=== PATIENT | female | born 1950 | race Caucasian/White ===

== ENCOUNTER 2018-05-01 17:12 | Observation (INO) | payer OTHER ==
[2018-05-01 17:56] LABS: Absolute Lymphocytes (CBC) 2.2 K/uL (0.7-4.9); Absolute Monocytes 0.7 K/uL (0.1-1.3); Absolute Neutrophil 5.6 K/uL (1.8-8.0); Basophils % 1.1 % (0-1.3); Eosinophils % 1.7 % (0-4.4); Hematocrit 45.5 % (36.0-45.0); Lymphocytes % 25.3 % (15.3-44.8); MCH 29.3 pg (27.0-35.0); MPV 9.1 fL (7.6-11.3); Monocytes % 7.8 % (3.3-12.3); RBC Red Blood Cell Count 5.29 M/uL (3.86-4.86)
[2018-05-01 17:59] LABS: Protime INR 1.01
[2018-05-01 18:17] LABS: Albumin 3.7 g/dL (3.4-5.0); Bilirubin Direct 0.2 mg/dL (0-0.2); Bilirubin Total 0.7 mg/dL (0.2-1.0); CKMB Creatine Kinase MB 2.3 ng/mL (0.3-3.6); Magnesium 1.8 mg/dL (1.8-2.4); Protein, Total 7.1 g/dL (6.4-8.2)
[2018-05-01 18:19] LABS: Potassium 2.9 mmol/L (3.5-5.1)
[2018-05-01] MEDS: NS KCL 40MEQ 40 MEQ/1,000 ML BAG IV SCH (19:00)
--- NOTE | 2018-05-01 19:28 | RAD REPORT ---
EXAM DESCRIPTION: Ashlyn Single View05/01/2018 6:54 pm CLINICAL HISTORY: Chest pain COMPARISON: none FINDINGS: The lungs appear clear of acute infiltrate. The heart is normal size IMPRESSION: No acute abnormalities displayed
--- NOTE | 2018-05-01 19:40 | ER ---
Nurse's Notes [facility] Name: Meg Santiago Age: 68 yrs Sex: Female : 1950 Arrival Date: 05/01/2018 Time: 17:15 Bed 7 Private MD: Diagnosis: Hypotension;Hypokalemia;Syncope and collapse Presentation: 05/01 17:17 Presenting complaint: EMS states: Pt was shopping, became dizzy and sat down. Pt had ss syncopal episode that last for only a few moments. En route EMS reports patient was hypotensive at 77/30, cool and clammy. Pt reports she recently had a medication change last week, and began taking her new blood pressure medication yesterday. Transition of care: patient was not received from another setting of care. Onset of symptoms was May 01, 2018. Risk Assessment: Do you want to hurt yourself or someone else? Patient reports no desire to harm self or others. Initial Sepsis Screen: Does the patient meet any 2 criteria? HR > 90 bpm. Does the patient have a suspected source of infection? No. Patient's initial sepsis screen is negative. 17:17 Method Of Arrival: EMS: [facility] ss 17:17 Acuity: AC 2 ss 17:19 Transition of care: patient was not received from another setting of care. Onset of hb symptoms was May 01, 2018. Risk Assessment: Do you want to hurt yourself or someone else? Patient reports no desire to harm self or others. Care prior to arrival: Medication(s) given: ASA, 324 mgh Normal saline infusion, 400 ml IV initiated. 20 GA, in the left antecubital area, Glucose check: 186. Triage Assessment: 18:03 Neuro: Reports. hb Historical: - Allergies: 17:22 PENICILLINS; ss - PMHx: 17:22 Hypertension; GERD; ss - Immunization history:: Adult Immunizations up to date. - Social history:: Smoking status: Patient/guardian denies using tobacco. - Ebola Screening: : No symptoms or risks identified at this time. Screenin:30 Abuse screen: Denies threats or abuse. Denies injuries from another. Nutritional hb screening: No deficits noted. Tuberculosis screening: No symptoms or risk factors identified. Fall Risk Total Linder Fall Scale indicates Low Risk Score (25-44 pts). Fall prevention measures have been instituted. Side Rails Up X 2 Frequent Obs/Assesments occuring As available Patient and Family Educated on Fall Prevention Program and strategies. Assessment: 17:20 General: Appears in no apparent distress. Behavior is calm, cooperative. Pain: Denies hb pain. Neuro: Level of Consciousness is awake, alert, obeys commands, Oriented to person, place, time, situation. Cardiovascular: Heart tones S1 S2 present Capillary refill < 3 seconds Patient's skin is warm and dry. Rhythm is regular. Respiratory: Airway is patent Trachea midline Respiratory effort is even, unlabored, Respiratory pattern is regular, symmetrical, Breath sounds are clear bilaterally. GI: No signs and/or symptoms were reported involving the gastrointestinal system. : No signs and/or symptoms were reported regarding the genitourinary system. EENT: No signs and/or symptoms were reported regarding the EENT system. Derm: No signs and/or symptoms reported regarding the dermatologic system. Skin is intact, is healthy with good turgor, Skin is pink, warm \T\ dry. Musculoskeletal: No signs and/or symptoms reported regarding the musculoskeletal system. 18:19 Reassessment: Dr. Hood notified of critical lab value. Potassium K+. ss 18:50 Reassessment: Patient appears in no apparent distress at this time. Patient and/or sv family updated on plan of care and expected duration. Pain level reassessed. Patient is alert, oriented x 3, equal unlabored respirations, skin warm/dry/pink. 19:15 General: Appears in no apparent distress. comfortable, Behavior is calm, cooperative. ao Pain: Denies pain. Neuro: Level of Consciousness is awake, alert, obeys commands, Oriented to person, place, time, situation, Appropriate for age Moves all extremities. Full function Speech is normal, Facial symmetry appears normal. Cardiovascular: Capillary refill < 3 seconds Patient's skin is warm and dry. Respiratory: Airway is patent Respiratory effort is even, unlabored, Respiratory pattern is regular, symmetrical. GI: Abdomen is non-distended. : No signs and/or symptoms were reported regarding the genitourinary system. EENT: No signs and/or symptoms were reported regarding the EENT system. Derm: Skin is intact, is healthy with good turgor, Skin is moist, Skin is pink, warm \T\ dry. normal, Skin temperature is warm. Musculoskeletal: Range of motion: intact in all extremities. 20:30 Reassessment: Patient appears in no apparent distress at this time. Patient and/or ao family updated on plan of care and expected duration. Pain level reassessed. Patient is alert, oriented x 3, equal unlabored respirations, skin warm/dry/pink. Patient to be admitted. patient agree with the POC. 21:32 Reassessment: Patient appears in no apparent distress at this time. Patient and/or ao family updated on plan of care and expected duration. Pain level reassessed. Patient is alert, oriented x 3, equal unlabored respirations, skin warm/dry/pink. waiting on room assignment. Vital Signs: 17:16 BP 102 / 66; Pulse 104; Resp 14; Temp 98.2; Pulse Ox 99% on R/A; Pain 3/10; hb 18:30 BP 99 / 56; Pulse 108; Resp 21; Pulse Ox 97% on R/A; sv 19:30 BP 108 / 62; Pulse 94; Resp 17; Pulse Ox 96% on R/A; ao 20:30 BP 103 / 67; Pulse 98; Resp 13; Pulse Ox 96% on R/A; Pain 0/10; ao 21:34 BP 107 / 67; Pulse 103; Resp 21; Pulse Ox 99% on R/A; Pain 0/10; ao ED Course: 17:15 Patient arrived in ED. hb 17:17 Arm band placed on right wrist. hb 17:19 Marya Mancia FNP-C is PHCP. snw 17:19 Ketan Hood MD is Attending Physician. snw 17:20 Patient has correct armband on for positive identification. Placed in gown. Bed in low hb position. Call light in reach. Side rails up X2. technical laboratory asst on. Pulse ox on. NIBP on. 17:20 Maintain EMS IV. Dressing intact. Good blood return noted. Site clean \T\ dry. Gauge \T\ hb site: 20G LEFT AC. 17:21 Triage completed. ss 17:25 EKG done, by die maintenance technician. reviewed by Ketan Hood MD. sm3 18:01 Swetha Calhoun, RYAN is Primary Nurse. hb 18:53 XRAY Chest (1 view) In Process Unspecified. EDMS 19:39 Hector Andrade MD is Hospitalizing Provider. snw 20:33 Primary Nurse role handed off by Swetha Calhoun RN rg2 21:03 Aydin Arnold, RN is Primary Nurse. ao 22:14 No provider procedures requiring assistance completed. Patient admitted, IV remains in ao place. Administered Medications: 18:54 Drug: NS 0.9% with KCl 40 mEq/L 1000 ml Route: IV; Rate: 100 ml/hr; Site: left sv antecubital; 21:28 Follow up: IV Status: Infusion continued upon admission ao Point of Care Testing: Blood Glucose: 17:17 Blood Glucose: 186 mg/dL; hb Ranges: Outcome: 19:40 Decision to Hospitalize by Provider. snw 22:00 Patient left the ED. ak1 22:14 Admitted to Tele accompanied by nurse, room 427, with chart, Report called to anurag Renteria RN 22:14 Condition: stable 22:14 Instructed on the need for admit. Signatures: Dispatcher [employer] EDMS Lizette Winter rg2 Sheri Kumar RN RN Marya Mancia, BAND TOP MAKER-C BAND TOP MAKER-Aimee Mendoza RN RN ss Krenek, Amber, RN RN ak1 Aydin Arnold, RN RN Swetha Lomas, RYAN RN Kadie Morales 3 Corrections: (The following items were deleted from the chart) 17:22 17:19 Method Of Arrival: EMS: [facility] hb hb
--- NOTE | 2018-05-01 19:40 | EDPHYS ---
Physician Documentation [facility] Name: Meg Santiago Age: 68 yrs Sex: Female : 1950 Arrival Date: 05/01/2018 Time: 17:15 Bed 7 Private MD: ED Physician Ketan Hood HPI: 05/01 17:36 This 68 yrs old Female presents to ER via EMS with complaints of Syncope. snw 17:36 The patient has experienced syncope, collapsed, lost consciousness. Onset: The snw symptoms/episode began/occurred suddenly. Duration: This was a single episode. Context: the episode(s) was witnessed, by family, occurred at a store, occurred while the patient was sitting, pt just changed BP medications. Associated injury: The patient did not suffer any apparent associated injury. Associated signs and symptoms: The patient has no apparent associated signs or symptoms. Current symptoms: Currently, the patient is not experiencing any symptoms. problems with blood pressure over the past week. appt with Dr. Giron last week. Pt taken off Ramipril and placed on new med that "starts with an M", pt notes problems with low blood pressure since.. Historical: - Allergies: 17:22 PENICILLINS; ss - PMHx: 17:22 Hypertension; GERD; ss - Immunization history:: Adult Immunizations up to date. - Social history:: Smoking status: Patient/guardian denies using tobacco. - Ebola Screening: : No symptoms or risks identified at this time. ROS: 17:34 Eyes: Negative for injury, pain, redness, and discharge, ENT: Negative for injury, snw pain, and discharge, Neck: Negative for injury, pain, and swelling, Cardiovascular: Negative for chest pain, palpitations, and edema, Respiratory: Negative for shortness of breath, cough, wheezing, and pleuritic chest pain, Abdomen/GI: Negative for abdominal pain, nausea, vomiting, diarrhea, and constipation, Back: Negative for injury and pain, : Negative for injury, bleeding, discharge, and swelling, MS/Extremity: Negative for injury and deformity, Skin: Negative for injury, rash, and discoloration. 17:34 Constitutional: Positive for malaise. 17:34 Neuro: Positive for syncope. Exam: 17:33 Head/Face: Normocephalic, atraumatic. Eyes: Pupils equal round and reactive to light, snw extra-ocular motions intact. Lids and lashes normal. Conjunctiva and sclera are non-icteric and not injected. Cornea within normal limits. Periorbital areas with no swelling, redness, or edema. Neck: Trachea midline, no thyromegaly or masses palpated, and no cervical lymphadenopathy. Supple, full range of motion without nuchal rigidity, or vertebral point tenderness. No Meningismus. Chest/axilla: Normal chest wall appearance and motion. Nontender with no deformity. No lesions are appreciated. Respiratory: Lungs have equal breath sounds bilaterally, clear to auscultation and percussion. No rales, rhonchi or wheezes noted. No increased work of breathing, no retractions or nasal flaring. Abdomen/GI: Soft, non-tender, with normal bowel sounds. No distension or tympany. No guarding or rebound. No evidence of tenderness throughout. Back: No spinal tenderness. No costovertebral tenderness. Full range of motion. Skin: Warm, dry with normal turgor. Normal color with no rashes, no lesions, and no evidence of cellulitis. MS/ Extremity: Pulses equal, no cyanosis. Neurovascular intact. Full, normal range of motion. Neuro: Awake and alert, GCS 15, oriented to person, place, time, and situation. Cranial nerves II-XII grossly intact. Motor strength 5/5 in all extremities. Sensory grossly intact. Cerebellar exam normal. Normal gait. 17:33 Constitutional: The patient appears alert, awake. 17:33 Cardiovascular: Rate: tachycardic, Rhythm: regular, Pulses: no pulse deficits are appreciated, Heart sounds: normal. Vital Signs: 17:16 BP 102 / 66; Pulse 104; Resp 14; Temp 98.2; Pulse Ox 99% on R/A; Pain 3/10; hb 18:30 BP 99 / 56; Pulse 108; Resp 21; Pulse Ox 97% on R/A; sv 19:30 BP 108 / 62; Pulse 94; Resp 17; Pulse Ox 96% on R/A; ao 20:30 BP 103 / 67; Pulse 98; Resp 13; Pulse Ox 96% on R/A; Pain 0/10; ao 21:34 BP 107 / 67; Pulse 103; Resp 21; Pulse Ox 99% on R/A; Pain 0/10; ao MDM: 17:19 Patient medically screened. snw 19:40 Data reviewed: vital signs, nurses notes. Data interpreted: Pulse oximetry: on room air snw is 97 %. Interpretation: normal. Counseling: I had a detailed discussion with the patient and/or guardian regarding: the historical points, exam findings, and any diagnostic results supporting the discharge/admit diagnosis, lab results, radiology results, the need for further work-up and treatment in the hospital. Physician consultation: Hector Andrade MD was called at 19:40, regarding admission, to the telemetry unit. 05/01 17:31 Order name: Basic Metabolic Panel; Complete Time: 18:25 snw 05/01 19:31 Interpretation: K 2.9. snw 05/01 17:31 Order name: CBC with Diff; Complete Time: 18:01 snw 05/01 17:31 Order name: Ckmb; Complete Time: 18:25 snw 05/01 17:31 Order name: CPK; Complete Time: 18:25 snw 05/01 17:31 Order name: LFT's; Complete Time: 18:25 snw 05/01 17:31 Order name: Magnesium; Complete Time: 18:25 snw 05/01 17:31 Order name: NT PRO-BNP; Complete Time: 18:25 snw 05/01 17:31 Order name: PT-INR; Complete Time: 18:01 snw 05/01 17:31 Order name: Ptt, Activated; Complete Time: 18:01 snw 05/01 17:31 Order name: Troponin (emerg Dept Use Only); Complete Time: 18:25 snw 05/01 21:07 Order name: CBC with Automated Diff EDMS 05/01 21:07 Order name: CBC with Automated Diff EDMS 05/01 21:07 Order name: Comprehensive Metabolic Panel EDMS 05/01 21:07 Order name: Comprehensive Metabolic Panel EDMS 05/01 17:31 Order name: XRAY Chest (1 view); Complete Time: 19:31 snw 05/01 17:31 Order name: EKG; Complete Time: 17:31 snw 05/01 17:31 Order name: Cardiac monitoring; Complete Time: 18:04 snw 05/01 17:31 Order name: EKG - Nurse/Tech; Complete Time: 18:04 snw 05/01 17:31 Order name: IV Saline Lock; Complete Time: 18:04 snw 05/01 17:31 Order name: Labs collected and sent; Complete Time: 18:04 snw 05/01 17:31 Order name: O2 Per Protocol; Complete Time: 18:04 snw 05/01 17:31 Order name: O2 Sat Monitoring; Complete Time: 18:04 snw 05/01 21:07 Order name: CONS Pharmacy Consult EDOH 05/01 21:07 Order name: NPO EDMS 05/01 21:07 Order name: Lipid Profile EDMS 05/01 21:07 Order name: Lipid Profile EDMS 05/01 21:08 Order name: Renal Ultrasound-Complete EDMS 05/01 21:08 Order name: Renal Ultrasound-Complete EDOH Administered Medications: 18:54 Drug: NS 0.9% with KCl 40 mEq/L 1000 ml Route: IV; Rate: 100 ml/hr; Site: left sv antecubital; 21:28 Follow up: IV Status: Infusion continued upon admission ao Point of Care Testing: Blood Glucose: 17:17 Blood Glucose: 186 mg/dL; hb Ranges: Critical Glucose Levels:Adult <50 mg/dl or >400 mg/dl <40 mg/dl or >180 mg/dl Disposition: 05/02 06:43 Co-signature as Attending Physician, Ketan Hood MD I agree with the assessment and alfredo plan of care. Disposition: 05/01/18 19:40 Hospitalization ordered by Hector Andrade for Observation. Preliminary diagnosis are Hypotension, Hypokalemia, Syncope and collapse. - Bed requested for Telemetry/MedSurg (observation). - Status is Observation. ak1 - Condition is Stable. - Problem is new. - Symptoms have improved. UTI on Admission? No Signatures: Dispatcher [employer] EDOH Sheri Kumar, RN Ketan Poon MD MD cha Therrien, Shelly, LIFT TEAM TECHNICIAN-C LIFT TEAM TECHNICIAN-Holly Krause ms Aimee Cochran, RYAN DAVIS ss Charissa Mae RN RN ak1 Swetha Calhoun RN RN hb Ortiz, Alex RN ao Corrections: (The following items were deleted from the chart) 05/01 21:34 19:40 Hospitalization Ordered by Hector Andrade MD for Observation. Preliminary ms diagnosis is Hypotension; Hypokalemia; Syncope and collapse. Bed requested for Telemetry/MedSurg (observation). Status is Observation. Condition is Stable. Problem is new. Symptoms have improved. UTI on Admission? No. snw 22:00 21:34 05/01/2018 19:40 Hospitalization Ordered by Hector Andrade MD for Observation. ak1 Preliminary diagnosis is Hypotension; Hypokalemia; Syncope and collapse. Bed requested for Telemetry/MedSurg (observation). Status is Observation. Condition is Stable. Problem is new. Symptoms have improved. UTI on Admission? No. ms
[2018-05-01] MEDS ORDERED: ONDANSETRON 4 MG/2 ML VIAL IV PRN (21:05)
[2018-05-01] MEDS ORDERED: ACETAMINOPHEN 500 MG TAB PO PRN (21:05)
[2018-05-01] MEDS ORDERED: MORPHINE 2 MG/ML SYR IV PRN (21:05)
--- NOTE | 2018-05-01 21:50 | EKG ---
Test Date: 2018-05-01 Test Time: 17:16:29 Electric Scoop Operator: JOSE JUAN MEASUREMENT RESULTS: Intervals: Rate: 102 MO: 140 QRSD: 74 QT: 404 QTc: 526 [place]: P: 41 MO: 140 QRS: 12 T: 54 INTERPRETIVE STATEMENTS: Sinus tachycardia T wave abnormality, consider anterior ischemia Abnormal ECG No previous ECG available for comparison Electronically Signed On 05-01-18 21:49:52 CDT by Cleveland Dorantes
[2018-05-01] MEDS ORDERED: NA CHLORIDE 0.9% 1,000 ML IV SCH (22:00)
[2018-05-01] MEDS ORDERED: LOPERAMIDE HCL 2 MG CAPSULE PO PRN (23:04)
[2018-05-01] MEDS ORDERED: LOPERAMIDE HCL 2 MG CAPSULE PO ONE (23:04)
[2018-05-02] MEDS: NS KCL 40MEQ 40 MEQ/1,000 ML BAG IV SCH ×3 (05:30→20:27)
[2018-05-02 06:40] LABS: Absolute Lymphocytes (CBC) 1.8 K/uL (0.7-4.9); Absolute Monocytes 0.6 K/uL (0.1-1.3); Basophils % 1.3 % (0-1.3); Hematocrit 41.6 % (36.0-45.0); Lymphocytes % 32.2 % (15.3-44.8); MCH 29.4 pg (27.0-35.0); MPV 8.9 fL (7.6-11.3); Monocytes % 11.1 % (3.3-12.3); RBC Red Blood Cell Count 4.83 M/uL (3.86-4.86)
[2018-05-02 06:46] LABS: Albumin 3.4 g/dL (3.4-5.0); Bilirubin Total 0.7 mg/dL (0.2-1.0); Potassium 3.3 mmol/L (3.5-5.1); Protein, Total 6.5 g/dL (6.4-8.2)
--- NOTE | 2018-05-02 09:07 | P.HP ---
Certification for Inpatient Patient admitted to: Inpatient Patient will require the following post-hospital care: None Practitioner: I am a practitioner with admitting privileges, knowledge of patient current condition, hospital course, and medical plan of care. Services: Services provided to patient in accordance with Admission requirements found in Title 42 Section 412.3 of the Code of Federal Regulations Patient History Date of Service: 05/01/18 Reason for admission: Syncope; hypokalemia History of Present Illness: Patient is a 60-year-old female who was seen by her primary care provider and started on a new antihypertensive medication. Since starting the medication the patient is been feeling ill. She was out [facility] which she had a syncopal episode. She became completely unresponsive. Patient was brought into the emergency room were she had a blood pressure of 70/40. After gentle hydration her blood pressure improved. She also had acute renal insufficiency. After IV hydration patient blood pressure improved. Patient was admitted to the hospital for further evaluation. Will do a syncopal workup and will also adjust her blood pressure medications to see which would be most appropriate for her. 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 moist/pink, EOMI, Sclerae nonicteric Neck: Supple, 2+ carotid pulse no bruit, No LAD, Without JVD or thyroid abnormality Respiratory: Clear to auscultation bilaterally, Normal air movement Cardiovascular: Regular rate/rhythm, Normal S1 S2, No murmurs Gastrointestinal: Normal bowel sounds, Soft and benign, Non-distended, No tenderness Musculoskeletal: No clubbing, No swelling, No tenderness Integumentary: No rashes Neurological: Normal gait, Normal speech, Normal strength at 5/5 x4 extr, Normal tone, Sensation intact, Cranial nerves 3-12 intact, Normal affect Lymphatics: No axilla or inguinal lymphadenopathy - Studies Laboratory Data (last 24 hrs) 05/01/18 17:24: PT 11.9, INR 1.01, APTT 25.1 05/01/18 17:24: WBC 8.7, Hgb 15.5 H, Hct 45.5 H, Plt Count 325 05/01/18 17:24: Sodium 141, Potassium 2.9 L*, BUN 20 H, Creatinine 2.10 H, Glucose 137 H, Magnesium 1.8, Total Bilirubin 0.7, AST 41 H, ALT 50, Alkaline Phosphatase 67 Assessment & Plan - Problems (Diagnosis) (1) Syncope and collapse Current Visit: Yes Status: Acute (2) Antihypertensive adverse reaction Current Visit: Yes Status: Acute (3) ABE (acute kidney injury) Current Visit: Yes Status: Acute - Plan PLAN: 1. IV hydration 2. Replace her electrolytes 3. Reassess her blood pressure medications 4. Carotid Doppler and echocardiogram 5. Monitor hemodynamics closely 6. GI and DVT prophylaxis Discharge Plan: Home Plan to discharge in: Greater than 2 days - Advance Directives Does patient have a Living Will: No Does patient have a Durable POA for Healthcare: No - Code Status/Comfort Care Code Status Assessed: Yes Code Status: Full Code Critical Care: No Time Spent Managing PTS Care (In Minutes): 50
--- NOTE | 2018-05-02 09:26 | RAD REPORT ---
EXAM DESCRIPTION: US - Renal Ultrasound-Complete - 05/02/2018 8:12 am CLINICAL HISTORY: Acute kidney injury COMPARISON: None. FINDINGS: The right kidney measures 8.8 x 5.3 x 5.0 cm. The left kidney measures 9.0 x 5.2 x 5.4 cm . Slight cortical thinning seen in both kidneys in both kidneys show an increase in cortical echogeni city that can indicate medical renal disease. No hydronephrosis or suspicious renal mass. Bladder was contracted limiting assessment. No gross abnormality seen. IMPRESSION: Slight cortical thinning and increased cortical echogenicity. Both findings support unde rlying medical renal disease. No hydronephrosis, mass or acute finding seen.
--- NOTE | 2018-05-02 09:41 | RAD REPORT ---
EXAM DESCRIPTION: OZZY - JACQUELINE - 05/02/2018 8:12 am CLINICAL HISTORY: Dizziness, syncope COMPARISON: None. TECHNIQUE: Real-time sonographic evaluation of both carotid systems was performed. Grayscale and Dop pler interrogation was performed with waveform tracing bilaterally. FINDINGS: Normal high resistance waveforms are noted in both external carotid arteries. The common c arotid arteries and internal carotid arteries show normal low resistance waveforms. No significant plaquing changes are identifiable. No dissection seen. Right common carotid artery mathew ocity is 61 cm/second. Left-sided velocity is 85 cm/second. Distal right ICA is tortuous. Right-side ICA velocities range from 68-106 cm/second. The elevated velocity is believed to be due to the tortuo sity. A stenotic lesion could not be confirmed. Left-sided ICA velocities range from 37-102 cm/second . Again, no focal stenosis seen as a source for the elevated velocity. ICA/CCA ratios are 1.7 on the right and 1.2 on the left. Antegrade flow seen in both vertebral arteries. Velocity values and ratios were recorded and are retained in the patient's imaging records. IMPRESSION: No significant plaquing changes identifiable. No dissection. Hemodynamically significant stenosis is not suspected. The relative right-side ICA velocity elevation and the elevated ICA/ CCA ratio are believed to be art ifacts of tortuosity rather than vascular disease.
[2018-05-02] MEDS: CETIRIZINE HCL 5 MG TABLET PO SCH (15:38)
--- NOTE | 2018-05-02 17:16 | ECHO ---
HEIGHT: 5 ft 5 in WEIGHT: 212 lb 9.6 oz DATE OF STUDY: 05/02/[address]: Hector Andrade MD 2-DIMENSIONAL: YES M.MODE: YES DOPPLER: YES COLOR FLOW: YES TDS: PORTABLE: DEFINITY: BUBBLE STUDY: DIAGNOSIS: SYNCOPE CARDIAC HISTORY: CATHERIZATION: NO SURGERY: NO PROSTHETIC VALVE: NO PACEMAKER: NO MEASUREMENTS (cm) DIASTOLIC (NORMALS) SYSTOLIC (NORMALS) IVSd 0.9 (0.6-1.2) LA Diam 2.7 (1.9-4.0) LVEF 59% LVIDd 3.4 (3.5-5.7) LVIDs 2.4 (2.0-3.5) %FS 31% LVPWd 0.9 (0.6-1.2) Ao Diam 2.6 (2.0-3.7) 2 DIMENSIONAL ASSESSMENT: RIGHT ATRIUM: NORMAL LEFT ATRIUM: NORMAL RIGHT VENTRICLE: NORMAL LEFT VENTRICLE: NORMAL TRICUSPID VALVE: NORMAL MITRAL VALVE: MITRAL ANNULAR CALCIFICATION, MILD PULMONIC VALVE: NORMAL AORTIC VALVE: NORMAL PERICARDIAL EFFUSION: NONE AORTIC ROOT: NORMAL LEFT VENTRICULAR WALL MOTION: NORMAL DOPPLER/COLOR FLOW: NORMAL COMMENTS: NORMAL LEFT VENTRICULAR EJECTION FRACTION. MITRAL ANNULAR CALCIFICATION. OTHERWISE NORMAL TWO DIMENSIONAL ECHOCARDIOGRAM. TECHNOLOGIST: FELIPE GOMES
[2018-05-02] MEDS: PANTOPRAZOLE 40MG TABLET PO SCH (20:27)
[2018-05-02] MEDS ORDERED: QUETIAPINE 100MG TAB PO SCH (21:00)
--- NOTE | 2018-05-02 22:01 | PN ---
Date of Progress Note: 05/02/2018 Subjective: The patient is seen and examined. Chart reviewed and case discussed with RN. The patient states she has been better, able to get up and go to the bathroom, but still feels a little bit dizzy. Review of Systems: Negative except as above. Medications: List reviewed. Physical Examination: Vital Signs: Temperature 97.3, heart rate 86, blood pressure 94/54, respirations 16, O2 98% on room air. Orthostatic vital signs; blood pressure lying down is 96/62 with heart rate of 95, blood pressure sitting up is 122/58, pulse of 103, blood pressure standing up drops to 99/55 with a pulse of 117. General: Awake, alert, oriented x3. Elderly female, obese, BMI 35. CV: S1, S2. No murmurs. Regular rate and rhythm. Peripheral pulses present. Respiratory: Clear to auscultation bilaterally. No wheezing. No stridor. No use of accessory muscles. Gastrointestinal: Abdomen is soft, nontender, nondistended. Positive bowel sounds. No guarding or rigidity. Extremities: No clubbing, cyanosis, or edema. Neuro: Nonfocal. Laboratory Data: Sodium 139, potassium 3.3, chloride 105, CO2 26, BUN 22, creatinine 1.4, glucose 100, calcium 8.9. Total bilirubin 0.7, AST 35, ALT 24, albumin 3.4. Triglycerides 234, cholesterol 193, LDL 109, HDL 37. WBC 5.7, H and H 14.2 and 41.6, platelets 242. Carotid artery ultrasound shows no significant plaquing changes identifiable no hemodynamically significant stenosis is not suspected. right-sided ICA velocity elevation and the elevated ICA-CCA ratio believed to be artefact with tortuosity rather than vascular disease. Renal ultrasound shows slight cortical thinning and increased cortical echogenicity with findings of poor underlying medical renal disease. No hydronephrosis, mass or acute finding seen. Assessment And Plan: A 68-year-old female with: 1. Syncopal episodes due to hypotension, likely related to orthostatic hypotension. The patient was recently started on combination drugs of ARB with chlorthalidone. Medication has been stopped. We will continue with IV fluid hydration and physical therapy. Continue fall precautions. 2. Obesity, BMI 35.4. 3. Essential hypertension, currently hypotensive. 4. Acute kidney injury, likely due to prerenal azotemia. Creatinine is improving. We will continue IV fluids and monitor creatinine level. 5. Hypokalemia. Replace and monitor. 6. Gastroesophageal reflux disease without esophagitis. We will continue PPI. /ELIJAH Voice ID: [id number] Report ID: [id number] MTDD
[2018-05-03] MEDS: NS KCL 40MEQ 40 MEQ/1,000 ML BAG IV SCH ×2 (01:00→10:07)
[2018-05-03 05:50] LABS: Potassium 3.9 mmol/L (3.5-5.1)
[2018-05-03] MEDS: CETIRIZINE HCL 5 MG TABLET PO SCH (10:07)
[2018-05-03] MEDS: PANTOPRAZOLE 40MG TABLET PO SCH (10:07)
--- NOTE | 2018-05-03 13:13 | DS ---
Date of Discharge: 05/03/2018 Admitting Diagnoses: 1.Syncopal episode. 2.Adverse reaction to antihypertensive medications. 3.Acute kidney injury. 4.Gastroesophageal reflux disease. 5.Hypokalemia. Discharge Diagnoses: 1.Syncopal episode, resolved, secondary to orthostatic hypotension from adverse reaction to antihype rtensive medications. 2.Obesity, BMI 35.4. 3.Essential hypertension, currently hypotensive. Blood pressure medications discontinued. 4.Acute kidney injury secondary to prerenal azotemia, dehydration, resolved. 5.Hypokalemia, replaced. 6.Gastroesophageal reflux disease without esophagitis. We will continue PPI. Hospital Course: The patient is a 68-year-old female, comes in with a syncopal episode at [facility]. The patient was recently started on a combination medication for her blood pressure and did not do w ell with the medication. The patient was also dehydrated, had hypokalemia and prerenal azotemia. Th e patient was started on IV fluids. Her creatinine improved from 2.1 and normalized. Her potassium was replaced. Her troponin level was negative. Workup including carotid artery ultrasound and an ec hocardiogram did not show any abnormalities. Her ejection fraction was 59%, normal echo. Did have s ome mitral annular calcification. The patient's orthostatics were initially positive. IV fluid resu scitation was continued and the patient responded well. Her repeat orthostatic vital signs on the da y of discharge were negative. She was able to ambulate without getting dizzy. No further episodes o f syncope. The patient was instructed to discontinue her new combination blood pressure medication, to keep a log, and to present to her primary care physician if blood pressure continues to become sean vated. Currently, the patient is hypotensive, but not symptomatic. The patient was then cleared for discharge and sent home in a stable condition. Activity: Fall precautions. Diet: Regular. Followup: Follow up with primary care physician in 2-3 days. Return to ER for worsening condition. Medications: As per medication reconciliation list. We will discontinue combination of blood pressu re medication. Physical Examination: General: Awake, alert, oriented, no acute distress. Elderly female, obese, BMI 35. CV: S1, S2. No murmurs. Peripheral pulses present. Respiratory: Moving air well bilaterally. No wheezing. Gastrointestinal: Abdomen is soft, nontender, nondistended. Positive bowel sounds. Extremities: No clubbing, cyanosis, or edema. Neurologic: Nonfocal. SA/MODL Voice ID: [id number] Report ID: [id number]
== END 2018-05-03 12:40 | disposition home or self-care (01) ==
LOC: ER 17:12 → ERHOLD 21:28 → 4TH 21:45
PROVIDERS: ADMIT Hospitalist; ATTEND Family Medicine
DX: I95.2 Hypotension due to drugs (principal); T46.5X5A Adverse effect of other antihypertensive drugs, initial encounter; Y92.512 Supermarket, store or market as the place of occurrence of the external cause; E86.0 Dehydration; E87.6 Hypokalemia; N17.9 Acute kidney failure, unspecified; E66.9 Obesity, unspecified; Z68.35 Body mass index [BMI] 35.0-35.9, adult; K21.9 Gastro-esophageal reflux disease without esophagitis; Z88.0 Allergy status to penicillin
CPT/HCPCS: 36415 ×2; 71045; 76770; 80048 ×2; 80053; 80061; 80076; 82550; 82553; 83735; 83880; 84484; 85025 ×2; 85610; 85730; 93005; 93306; 93880; 96360; 96361; 97116; 97163; 97530; 99285; G0378 ×2

== ENCOUNTER 2020-07-16 17:23 | Emergency (ER) | payer OTHER ==
[2020-07-16 18:43] LABS: Absolute Lymphocytes (CBC) 1.5 K/uL (0.7-4.9); Basophils % 1.4 % (0-1.3); Hematocrit 46.9 % (36.0-45.0); Lymphocytes % 24.8 % (15.3-44.8); MPV 8.6 fL (7.6-11.3); RBC Red Blood Cell Count 5.36 M/uL (3.86-4.86)
[2020-07-16 18:47] LABS: Protime INR 0.95
[2020-07-16 19:06] LABS: ALT/SGPT 73 U/L (12-78); AST/SGOT 44 U/L (15-37); Albumin 4.1 g/dL (3.4-5.0); Alkaline Phosphatase 93 U/L (45-117); BUN Blood Urea Nitrogen 20 mg/dL (7-18); Bicarbonate 25 mmol/L (21-32); Bilirubin Direct 0.1 mg/dL (0-0.2); Bilirubin Total 0.6 mg/dL (0.2-1.0); CKMB Creatine Kinase MB < 1.0 ng/mL (0.3-3.6); Creatine Phosphokinase 64 U/L (26-192); Glucose Level 124 mg/dL (74-106); Lipase 95 U/L (73-393); Magnesium 2.1 mg/dL (1.8-2.4); Protein, Total 7.6 g/dL (6.4-8.2); Sodium Level 140 mmol/L (136-145)
--- NOTE | 2020-07-16 19:36 | RAD REPORT ---
EXAM DESCRIPTION: RAD - Hand Left 3 View - 07/16/2020 6:40 pm CLINICAL HISTORY: PAIN Fall, trauma, pain COMPARISON: No comparisons FINDINGS: No acute fracture or dislocation is evident.
--- NOTE | 2020-07-16 19:38 | RAD REPORT ---
EXAM DESCRIPTION: CT - Head Brain Wo Cont - 07/16/2020 6:47 pm CLINICAL HISTORY: DIZZINESS Fall, trauma, head injury COMPARISON: Hand Left 3 View dated 07/16/2020 TECHNIQUE: All CT scans are performed using dose optimization technique as appropriate and may inclu de automated exposure control or mA/KV adjustment according to patient size. FINDINGS: No intracranial hemorrhage, hydrocephalus or extra-axial fluid collection.Moderate brain a trophy.No areas of brain edema or evidence of midline shift. The paranasal sinuses and mastoids are clear. The calvarium is intact. IMPRESSION: No acute intracranial abnormality.
[2020-07-16] MEDS ORDERED: NA CHLORIDE 0.9% 1,000 ML ONE (19:40)
--- NOTE | 2020-07-16 19:59 | EDPHYS ---
Physician Documentation [facility] Name: Meg Santiago Age: 70 yrs Sex: Female : 1950 Arrival Date: 07/16/2020 Time: 17:26 Bed 14 Private MD: ED Physician Edi Hayden HPI: 07/16 18:57 This 70 yrs old Female presents to ER via Ambulatory with complaints of Hand kb Injury, Wrist Injury. 18:57 The patient has experienced near-syncope, felt dizzy. Onset: The symptoms/episode kb began/occurred 3 week(s) ago. Duration: The patient has had multiple episodes. Context: the episode(s) was witnessed, by no one, occurred at home, occurred while the patient was walking, Just prior to the episode the patient experienced no apparent symptoms. Associated injury: Left upper extremity: left hand and left wrist, pain. Associated signs and symptoms: Pertinent positives: dizziness, Pertinent negatives: abdominal pain, agitation, ataxia, blurred vision, chest pain, combativeness, confusion, diaphoresis, diarrhea, headache, lightheadedness, nausea, numbness, palpitations, seizure, shortness of breath, tingling, vertigo, vomiting, weakness. Current symptoms: Currently, the patient is not experiencing any symptoms. The patient has not experienced similar symptoms in the past. The patient has not recently seen a physician. Pt reports she has been having episodes of dizziness that make her feel like she is going to pass out for a few weeks. States she normally holds onto something during the episodes until it passes, but it caused her to fall 2 weeks ago injuring her left hand. Came today because she is still having pain to left hand. Also had another dizzy spell a few days ago so her son wanted her to come get checked out. Denies chest pain, shortness of breath, weakness. States the dizziness normally follows exertion, such as unloading bags of groceries from the car and making several trips. Historical: - Allergies: 17:56 PENICILLINS; ss 17:56 Sulfa (Sulfonamide Antibiotics); ss - PMHx: 17:56 Hypertension; GERD; ss - Immunization history:: Adult Immunizations up to date. - Social history:: Smoking status: Patient denies any tobacco usage or history of. ROS: 18:56 Constitutional: Negative for fever, chills, and weight loss, Cardiovascular: Negative kb for chest pain, palpitations, and edema, Respiratory: Negative for shortness of breath, cough, wheezing, and pleuritic chest pain, Abdomen/GI: Negative for abdominal pain, nausea, vomiting, diarrhea, and constipation, Back: Negative for injury and pain, Skin: Negative for injury, rash, and discoloration. 18:56 MS/extremity: Positive for pain, of the left hand and left wrist. 18:56 Neuro: Positive for dizziness. kb Exam: 18:52 Constitutional: This is a well developed, well nourished patient who is awake, alert, kb and in no acute distress. Head/Face: Normocephalic, atraumatic. Eyes: Pupils equal round and reactive to light, extra-ocular motions intact. Lids and lashes normal. Conjunctiva and sclera are non-icteric and not injected. Cornea within normal limits. Periorbital areas with no swelling, redness, or edema. Chest/axilla: Normal chest wall appearance and motion. Nontender with no deformity. No lesions are appreciated. Cardiovascular: Regular rate and rhythm with a normal S1 and S2. No gallops, murmurs, or rubs. Normal PMI, no JVD. No pulse deficits. Respiratory: Lungs have equal breath sounds bilaterally, clear to auscultation and percussion. No rales, rhonchi or wheezes noted. No increased work of breathing, no retractions or nasal flaring. Abdomen/GI: Soft, non-tender, with normal bowel sounds. No distension or tympany. No guarding or rebound. No evidence of tenderness throughout. Back: No spinal tenderness. No costovertebral tenderness. Full range of motion. Skin: Warm, dry with normal turgor. Normal color with no rashes, no lesions, and no evidence of cellulitis. Neuro: Awake and alert, GCS 15, oriented to person, place, time, and situation. Cranial nerves II-XII grossly intact. Motor strength 5/5 in all extremities. Sensory grossly intact. Cerebellar exam normal. Normal gait. 18:52 Musculoskeletal/extremity: Extremities: grossly normal except: noted in the left hand: pain, tenderness, ROM: limited passive range of motion due to pain, in the left wrist, Circulation is intact in all extremities. Sensation intact. 18:53 ECG was reviewed by the Attending Physician. kb Vital Signs: 17:56 BP 137 / 86; Pulse 125; Resp 16; Temp 97.3(TE); Pulse Ox 99% on R/A; Weight 104.33 kg; ss Height 5 ft. 5 in. (165.10 cm); Pain 2/10; 19:28 BP 123 / 70 Supine; Pulse 100; wh 19:28 BP 119 / 77 Sitting; Pulse 117; wh 19:28 BP 133 / 79 Standing; Pulse 111; wh 20:30 BP 125 / 72; Pulse 91; Resp 18; Pulse Ox 99% on R/A; wh 17:56 Body Mass Index 38.27 (104.33 kg, 165.10 cm) ss MDM: 18:14 Patient medically screened. kb 18:52 Data reviewed: vital signs, nurses notes. Data interpreted: Pulse oximetry: on room air kb is 99 %. Interpretation: normal. 19:44 Counseling: I had a detailed discussion with the patient and/or guardian regarding: the kb historical points, exam findings, and any diagnostic results supporting the discharge/admit diagnosis, lab results, radiology results, the need for outpatient follow up, a family practitioner, to return to the emergency department if symptoms worsen or persist or if there are any questions or concerns that arise at home. 07/16 18:16 Order name: Basic Metabolic Panel; Complete Time: 19:12 kb 07/16 18:16 Order name: CBC with Diff; Complete Time: 18:47 kb 07/16 18:16 Order name: Ckmb; Complete Time: 19:12 kb 07/16 18:16 Order name: CPK; Complete Time: 19:12 kb 07/16 18:16 Order name: Hepatic Function; Complete Time: 19:12 kb 07/16 18:16 Order name: Lipase; Complete Time: 19:12 kb 07/16 18:16 Order name: CT Head Brain wo Cont; Complete Time: 19:41 kb 07/16 18:16 Order name: Magnesium; Complete Time: 19:12 kb 07/16 18:16 Order name: Protime (+inr); Complete Time: 18:50 kb 07/16 18:16 Order name: Ptt, Activated; Complete Time: 18:50 kb 07/16 18:16 Order name: Hemoglobin A1c kb 07/16 18:16 Order name: TSH; Complete Time: 19:12 kb 07/16 18:16 Order name: Hand Left 3 View XRAY; Complete Time: 19:38 kb 07/16 18:16 Order name: EKG; Complete Time: 18:17 kb 07/16 18:16 Order name: Cardiac monitoring; Complete Time: 19:22 kb 07/16 18:16 Order name: EKG - Nurse/Tech; Complete Time: 18:30 kb 07/16 18:16 Order name: IV Saline Lock; Complete Time: 18:30 kb 07/16 18:16 Order name: Labs collected and sent; Complete Time: 18:30 kb 07/16 18:16 Order name: NPO; Complete Time: 18:30 kb 07/16 18:16 Order name: O2 Per Protocol; Complete Time: 18:30 kb 07/16 18:16 Order name: O2 Sat Monitoring; Complete Time: 18:30 kb 07/16 18:16 Order name: Orthostatics; Complete Time: 19:14 kb EC:53 Rate is 104 beats/min. Rhythm is regular. QRS [place] is Normal. VT interval is normal at kb 132 msec. QRS interval is normal at 72 msec. QT interval is normal at 346 msec. Administered Medications: 19:32 Drug: NS 0.9% 1000 ml Route: IV; Rate: 1000 ml; Site: left antecubital; 20:43 Follow up: Response: No adverse reaction; IV Status: Completed infusion Disposition: 07/17 13:29 Co-signature as Attending Physician, Edi Hayden MD I agree with the assessment and kdr plan of care. Disposition: 07/16/20 19:58 Discharged to Home. Impression: Pain in left hand, Dizziness and giddiness, Dehydration. - Condition is Stable. - Discharge Instructions: Dehydration, Adult, Musculoskeletal Pain, Dizziness, [id number]. - Medication Reconciliation Form, Thank You Letter, Antibiotic Education, Prescription Opioid Use form. - Follow up: Emergency Department; When: As needed; Reason: Worsening of condition. Follow up: Private Physician; When: 2 - 3 days; Reason: Recheck today's complaints, Continuance of care, Re-evaluation by your physician. Signatures: Dispatcher [facility] Bell Rebolledo, Edi Martin MD MD kdr Smirch, Shelby, RN RN ss Emili Todd Corrections: (The following items were deleted from the chart) 07/16 18:56 18:56 Constitutional: Negative for fever, chills, and weight loss, Cardiovascular: petra Negative for chest pain, palpitations, and edema, Respiratory: Negative for shortness of breath, cough, wheezing, and pleuritic chest pain, Abdomen/GI: Negative for abdominal pain, nausea, vomiting, diarrhea, and constipation, Back: Negative for injury and pain, Skin: Negative for injury, rash, and discoloration, kb 20:44 19:58 07/16/2020 19:58 Discharged to Home. Impression: Pain in left hand; Dizziness and wh giddiness; Dehydration. Condition is Stable. Discharge Instructions: Dehydration, Adult, Musculoskeletal Pain, Dizziness, [id number]. Forms are Medication Reconciliation Form, Thank You Letter, Antibiotic Education, Prescription Opioid Use. Follow up: Emergency Department; When: As needed; Reason: Worsening of condition. Follow up: Private Physician; When: 2 - 3 days; Reason: Recheck today's complaints, Continuance of care, Re-evaluation by your physician. kb
--- NOTE | 2020-07-16 19:59 | ER ---
Nurse's Notes [facility] Name: Meg Santiago Age: 70 yrs Sex: Female : 1950 Arrival Date: 07/16/2020 Time: 17:26 Bed 14 Private MD: Diagnosis: Pain in left hand;Dizziness and giddiness;Dehydration Presentation: 07/16 17:55 Chief complaint: Patient states: L wrist pain that began 2 weeks ago after a fall. ss Coronavirus screen: Client denies travel out of the [place] in the last 14 days. Ebola Screen: Patient denies exposure to infectious person. Patient denies travel to an Ebola-affected area in the 21 days before illness onset. Initial Sepsis Screen: Does the patient meet any 2 criteria? HR > 90 bpm. Does the patient have a suspected source of infection? No. Patient's initial sepsis screen is negative. Risk Assessment: Do you want to hurt yourself or someone else? Patient reports no desire to harm self or others. Onset of symptoms was July 01, 2020. 17:55 Method Of Arrival: Ambulatory ss 17:55 Acuity: AC 3 ss Triage Assessment: 19:39 Injury Description: pain. wh Historical: - Allergies: 17:56 PENICILLINS; ss 17:56 Sulfa (Sulfonamide Antibiotics); ss - PMHx: 17:56 Hypertension; GERD; ss - Immunization history:: Adult Immunizations up to date. - Social history:: Smoking status: Patient denies any tobacco usage or history of. Screenin:54 Abuse screen: Denies threats or abuse. Denies injuries from another. Nutritional iw screening: No deficits noted. Tuberculosis screening: No symptoms or risk factors identified. Fall Risk IV access (20 points). Assessment: 17:58 Reassessment: During triage it was noted that patient's pulse is 125. Pt reports that ss over the past few weeks she has had intermittent dizziness and near syncopal episodes. 18:20 General: Appears in no apparent distress. Behavior is calm, cooperative. Pain: iw Complains of pain in left wrist. Neuro: Level of Consciousness is awake, alert, obeys commands, Oriented to person, place, time, situation, Moves all extremities. Full function Reports dizziness. Cardiovascular: Reports lightheadedness, palpitations, Rhythm is sinus tachycardia. Respiratory: Respiratory effort is even, unlabored, Respiratory pattern is regular, symmetrical. Derm: Skin is intact, is healthy with good turgor, Skin is clammy, Skin is normal. Musculoskeletal: Range of motion: intact in all extremities. 19:38 General: Appears in no apparent distress. Behavior is calm, cooperative, appropriate wh for age. Pain: Denies pain. Neuro: Level of Consciousness is awake, alert, obeys commands, Oriented to person, place, time, situation, Appropriate for age. Cardiovascular: Capillary refill < 3 seconds. Respiratory: Airway is patent Respiratory effort is even, unlabored, Respiratory pattern is regular, symmetrical. GI: Abdomen is flat, non-distended. : No signs and/or symptoms were reported regarding the genitourinary system. EENT: No signs and/or symptoms were reported regarding the EENT system. Derm: Skin is intact, is healthy with good turgor, Skin is pink, warm \T\ dry. normal. Musculoskeletal: Circulation, motion, and sensation intact. 20:10 Reassessment: Pt with DC order awaiting to finish Iv NS bolus. wh 20:35 Reassessment: Patient appears in no apparent distress at this time. Patient and/or wh family updated on plan of care and expected duration. Pain level reassessed. Patient is alert, oriented x 3, equal unlabored respirations, skin warm/dry/pink. Patient states symptoms have improved. Vital Signs: 17:56 BP 137 / 86; Pulse 125; Resp 16; Temp 97.3(TE); Pulse Ox 99% on R/A; Weight 104.33 kg; ss Height 5 ft. 5 in. (165.10 cm); Pain 2/10; 19:28 BP 123 / 70 Supine; Pulse 100; wh 19:28 BP 119 / 77 Sitting; Pulse 117; wh 19:28 BP 133 / 79 Standing; Pulse 111; wh 20:30 BP 125 / 72; Pulse 91; Resp 18; Pulse Ox 99% on R/A; wh 17:56 Body Mass Index 38.27 (104.33 kg, 165.10 cm) ED Course: 17:26 Patient arrived in ED. as 17:55 Triage completed. ss 17:56 Arm band placed on right wrist. ss 18:14 Bell [facility]bolledo [facility]C [facility]. kb 18:14 Edi Hayden MD is Attending Physician. kb 18:18 Yoana Rojas, RN is Primary Nurse. iw 18:30 Inserted saline lock: 20 gauge in right antecubital area, using aseptic technique. iw 18:31 EKG done, by ED staff, reviewed by Edi Hayden MD. 3 18:40 Hand Left 3 View XRAY In Process Unspecified. EDMS 18:47 CT Head Brain wo Cont In Process Unspecified. EDMS 19:39 Patient has correct armband on for positive identification. Bed in low position. Call light in reach. Side rails up X 1. court recording monitor on. Pulse ox on. NIBP on. 20:43 No provider procedures requiring assistance completed. IV discontinued, intact, bleeding controlled, No redness/swelling at site. Administered Medications: 19:32 Drug: NS 0.9% 1000 ml Route: IV; Rate: 1000 ml; Site: left antecubital; 20:43 Follow up: Response: No adverse reaction; IV Status: Completed infusion Outcome: 19:58 Discharge ordered by . kb 20:43 Discharged to home ambulatory. 20:43 Condition: stable 20:43 Discharge instructions given to patient, Instructed on discharge instructions, follow up and referral plans. POC Demonstrated understanding of instructions, follow-up care, POC 20:44 Patient left the ED. Signatures: Dispatcher [employer] EDMS Bell Rebolledo, HEATING AND VENTILATING DRAFTER-C HEATING AND VENTILATING DRAFTER-Kirkb Kristina Daniels as Yoana Rojas, RN RYAN Aimee Cochran RN RN Lida James formerly [facility] Emili Todd Corrections: (The following items were deleted from the chart) 17:58 17:55 Acuity: AC 4 ss ss 18:05 17:55 Initial Sepsis Screen: Does the patient meet any 2 criteria? No. Patient's ss initial sepsis screen is negative. Does the patient have a suspected source of infection? No. Patient's initial sepsis screen is negative. ss
[2020-07-16 21:27] VITALS: TEMP 97.3; O2SAT 99
[2020-07-16 21:31] VITALS: BP 125/72
== END 2020-07-16 20:44 | disposition home or self-care (01) ==
LOC: ER 17:23
DX: E86.0 Dehydration (principal); R42 Dizziness and giddiness; W19.XXXA Unspecified fall, initial encounter; Y93.9 Activity, unspecified; Y92.9 Unspecified place or not applicable; I10 Essential (primary) hypertension; K21.9 Gastro-esophageal reflux disease without esophagitis; Z88.0 Allergy status to penicillin; Z88.2 Allergy status to sulfonamides
CPT/HCPCS: 93005; 85025; 80048; 36415; 83735; 82550; 85610; 80076; 85730; 84443; 82553; 83690; 70450; 73130; 96360; 99284; J7030

== ENCOUNTER → 2023-09-21 | Emergency (ER) | payer OTHER ==
--- NOTE | 2023-09-21 11:45 | RAD REPORT ---
EXAM DESCRIPTION: RAD - Wrist Right 3 View - 09/21/2023 11:31 am CLINICAL HISTORY: Right wrist pain FINDINGS: No fracture or dislocation seen. 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
--- NOTE | 2023-09-21 12:18 | EDPHYS ---
Physician Documentation [facility] Name: Meg Santiago Age: 73 yrs Sex: Female : 1950 Arrival Date: 09/21/2023 Time: 09:55 Bed 12 Private MD: ED Physician Edi Hayden HPI: 09/21 11:05 This 73 yrs old Female presents to ER via Ambulatory with complaints of Wrist Pain - kdr right. 11:05 Patient reports falling about 6 weeks ago on her right wrist. Patient states that the kdr initial pain improved over a week or so but since then has become increasingly worse. Patient has pain in the anatomic snuffbox. Patient is otherwise without injury or complaint. Patient is nontoxic.. Onset: The symptoms/episode began/occurred gradually, 6 week(s) ago. The patient or guardian reports decreased range of motion, injury, pain. Historical: - Allergies: 10:15 PENICILLINS; hb 10:15 Sulfa (Sulfonamide Antibiotics); hb - PMHx: 10:15 GERD; Hypertension; hb - Immunization history:: Adult Immunizations up to date. - Social history:: Smoking status: Patient denies any tobacco usage or history of. ROS: 11:06 Constitutional: Negative for fever, chills, and weight loss, Eyes: Negative for injury, kdr pain, redness, and discharge, 11:06 MS/extremity: Positive for injury or acute deformity, decreased range of motion, pain, tenderness, of the right wrist, Exam: 11:06 Constitutional: This is a well developed, well nourished patient who is awake, alert, kdr and in no acute distress. 11:06 Musculoskeletal/extremity: Extremities: grossly normal except: noted in the right wrist: decreased ROM, pain, tenderness, Pain in the anatomical snuffbox, Vital Signs: 10:13 BP 167 / 84; Pulse 87; Resp 16; Temp 98.4(O); Pulse Ox 96% on R/A; Weight 90.72 kg; hb Height 5 ft. 4 in. ; Pain 7/10; 12:25 BP 158 / 72; Pulse 74; Resp 18; Pulse Ox 98% ; ko1 10:13 Body Mass Index 34.33 (90.72 kg, 162.56 cm) hb 10:13 Pain Scale: Adult hb MDM: 11:06 Data reviewed: vital signs, nurses notes, radiologic studies. kdr 12:17 Patient medically screened. kdr 09/21 10:25 Order name: Wrist Right 3 View XRAY; Complete Time: 12:08 kdr 09/21 10:25 Order name: Wrist Splint; Complete Time: 11:07 kdr Administered Medications: No medications were administered Disposition Summary: 09/21/23 12:17 Discharge Ordered Notes: Utilize the wrist splint only when up and around during the day. Location: Home kdr Problem: new kdr Symptoms: have improved kdr Condition: Stable kdr Diagnosis - Right wrist pain kdr - Pain in right wrist kdr Followup: kdr - With: Private Physician - When: 2 - 3 days - Reason: If symptoms return, Further diagnostic work-up, Recheck today's complaints, Continuance of care, Re-evaluation by your physician Discharge Instructions: - Discharge Summary Sheet kdr - Joint Pain kdr - Wrist Pain, Adult kdr Forms: - Medication Reconciliation Form kdr - Thank You Letter kdr - Prescription Opioid Use kdr - Patient Portal Instructions kdr - Leadership Thank You Letter kdr Prescriptions: - Tramadol 50 mg Oral tablet - take 1 tablet ORAL route every 8 hours as needed for pain at night; 12 tablet; kdr Refills: 0, Product Selection Permitted Signatures: Dispatcher [employer] EDMS Edi Hayden MD MD kdr Swetha Calhoun, RN RN
--- NOTE | 2023-09-21 12:18 | ER ---
Nurse's Notes [facility] Name: Meg Santiago Age: 73 yrs Sex: Female : 1950 Arrival Date: 09/21/2023 Time: 09:55 Bed 12 Private MD: Diagnosis: Right wrist pain;Pain in right wrist Presentation: 09/21 10:13 Chief complaint: Worsening right hand pain that radiates to wrist after fall 1 month hb ago. Coronavirus screen: At this time, the client does not indicate any symptoms associated with coronavirus-19. Ebola Screen: No symptoms or risks identified at this time. Initial Sepsis Screen: Does the patient meet any 2 criteria? No. Patient's initial sepsis screen is negative. Initial Sepsis Screen: Does the patient have a suspected source of infection? No. Patient's initial sepsis screen is negative. Risk Assessment: Do you want to hurt yourself or someone else? Patient reports no desire to harm self or others. Onset of symptoms was August 2023. 10:13 Method Of Arrival: Ambulatory hb 10:13 Acuity: AC 4 hb Historical: - Allergies: 10:15 PENICILLINS; hb 10:15 Sulfa (Sulfonamide Antibiotics); hb - PMHx: 10:15 GERD; Hypertension; hb - Immunization history:: Adult Immunizations up to date. - Social history:: Smoking status: Patient denies any tobacco usage or history of. Screenin:25 [facility] ED Fall Risk Assessment (Adult) History of falling in the last 3 months, ko1 including since admission Yes- single mechanical fall (1 pt). Abuse screen: Denies threats or abuse. Denies injuries from another. Nutritional screening: No deficits noted. Tuberculosis screening: No symptoms or risk factors identified. Vital Signs: 10:13 BP 167 / 84; Pulse 87; Resp 16; Temp 98.4(O); Pulse Ox 96% on R/A; Weight 90.72 kg; hb Height 5 ft. 4 in. ; Pain 7/10; 12:25 BP 158 / 72; Pulse 74; Resp 18; Pulse Ox 98% ; ko1 10:13 Body Mass Index 34.33 (90.72 kg, 162.56 cm) hb 10:13 Pain Scale: Adult hb ED Course: 09:58 Patient arrived in ED. im 09:59 Edi Hayden MD is Attending Physician. kdr 10:15 Triage completed. hb 10:15 Arm band placed on. hb 11:07 Laura Arriaga, RN is Primary Nurse. ap3 11:33 Wrist Right 3 View XRAY In Process Unspecified. EDMS 12:25 Patient has correct armband on for positive identification. Fall risk band placed. Bed ko1 in low position. Provided Education on: na. Pulse ox on. NIBP on. 12:25 No provider procedures requiring assistance completed. Patient did not have IV access ko1 during this emergency room visit. right wrist. Administered Medications: No medications were administered Medication: 12:25 VIS not applicable for this client. ko1 Outcome: 12:17 Discharge ordered by . kdr 12:25 Discharged to home ambulatory, ko1 12:25 Condition: stable 12:25 Instructed on discharge instructions, follow up and referral plans. medication usage, Demonstrated understanding of instructions, follow-up care, Prescriptions given X 1, 12:28 Patient left the ED. ko1 Signatures: Dispatcher [employer] EDKY Edi Hayden MD MD [facility] Swetha Calhoun RN RYAN Laura Arriaga RN RN ap3 Esther Buchanan, RN RN ko1 Kusum Aggarwal
[2023-09-21 12:33] VITALS: BP 158/72; TEMP 98.4; O2SAT 98
== END ==
LOC: ER 09:55
DX: M25.531 Pain in right wrist (principal); Z88.0 Allergy status to penicillin; Z88.2 Allergy status to sulfonamides
CPT/HCPCS: 99283